=== PATIENT | female | born 1980 | race Hispanic/Latino ===

== ENCOUNTER 2020-04-27 13:32 | Emergency (ER) | payer SELFPAY ==
[~2020-04-27] VITALS: Ht 167.6 cm; Wt 102.1 kg
--- NOTE | 2020-04-27 14:15 | Emergency Department Note ---
History of Present Illnes History of Present Illness Chief Complaint: Chest Pain History of Present Illness This is a 39 year old female Chief Complaint Comment Patient in from home with complaints of mid sternal to left sided chest pain and pressure that started about 2 weeks ago. Patient states that when the pressure comes on it is usually at night and she feels like it is difficult for her to breathe and then she begins feeling anxious and experiences worse pain. Patient also reports that she has been belching frequently lately. Patient also reports that she has difficulty sleeping and that she has been taking melatonin from time to time to help. Historian: Patient Arrival Mode: Car Sign Fabricator Required: No Onset (how long ago): week(s) (2) Location: L chest Quality: Sharp Radiation: Reports non-radiation Severity: mild Onset quality: gradual Duration (how long): week(s) Timing of current episode: sporadic Progression: waxing and waning Chronicity: new Context: Denies recent illness, Denies recent surgery Relieving factors: none Exacerbating factors: none Associated symptoms: Reports denies other symptoms Treatments prior to arrival: none Past Medical/Family History Physician Review I have reviewed the patient's past medical and family history. Any updates have been documented here. Past Medical History Recent Fever: No Clinical Suspicion of Infectio: No New/Unexplained Change in Ment: No Past Medical History: None Past Surgical History: None Review of Systems Review of Systems Constitutional: Reports no symptoms EENTM: Reports no symptoms Cardiovascular: Reports as per HPI, Reports chest pain Respiratory: Reports no symptoms Gastrointestinal: Reports no symptoms Genitourinary: Reports no symptoms Musculoskeletal: Reports no symptoms Integumentary: Reports no symptoms Neurological: Reports no symptoms Psychological: Reports no symptoms Endocrine: Reports no symptoms Hematological/Lymphatic: Reports no symptoms Physical Exam Related Data Allergies: Coded Allergies: No Known Allergies (Unverified , 04/27/20) Triage Vital Signs Vital Signs Date Time Temp Pulse Resp B/P (MAP) Pulse Ox O2 Delivery O2 Flow Rate FiO2 04/27/20 13:54 97.8 95 18 116/86 98 Room Air Vital signs reviewed: Yes Physical Exam CONSTITUTIONAL Constitutional: Present well-developed, Present well-nourished HENT HENT: Present normocephalic, Present atraumatic, Present oropharynx clear/moist, Present nose normal HENT L/R: Present left ext ear normal, Present right ext ear normal EYES Eyes: Reports PERRL, Reports conjunctivae normal NECK Neck: Present ROM normal PULMONARY Pulmonary: Present effort normal, Present breath sounds normal CARDIOVASCULAR Cardiovascular: Present regular rhythm, Present heart sounds normal, Present capillary refill normal, Present normal rate GASTROINTESTINAL Abdominal: Present soft, Present nontender, Present bowel sounds normal GENITOURINARY Genitourinary: Present exam deferred SKIN Skin: Present warm, Present dry MUSCULOSKELETAL Musculoskeletal: Present ROM normal NEUROLOGICAL Neurological: Present alert, Present oriented x 3, Present no gross motor or sensory deficits PSYCHOLOGICAL Psychological: Present mood/affect normal, Present judgement normal Procedures 12 Lead ECG Interpretation ECG Interpretation : Sign Fabricator: Interpreted by ED physician Date: Apr 27, 2020 Rhythm: sinus rhythm Rate: normal QRS axis: normal ST segments normal: Yes T waves normal: Yes Clinical Impression: non-specific ECG Assessment & Plan Medical Decision Making MDM 39-year-old female presents for chest pain. Chest pain onset early this morning. Initial differential includes ACS versus anxiety versus possible skeletal pain versus pneumonia among others. Workup shows normal cardiac enzymes, d-dimer normal, chest x-ray unremarkable. She was prescribed Eloxatin yesterday additionally had a negative workup. Troponin was 0.2 and decreased on repeat. Short-term follow-up with cardiology. She is uninsured and instructed to follow up with [facility] to see if they can see her. Patient states. She is appropriate for discharge. Reassessment Reassessment time: 16:38 Reassessment Well appearing, NAD Assessment & Plan Final Impression: (1) Chest pain Depart Disposition: HOME, SELF-CARE Last Vital Signs Date Time Temp Pulse Resp B/P (MAP) Pulse Ox O2 Delivery O2 Flow Rate FiO2 04/27/20 13:54 97.8 95 18 116/86 98 Room Air COBY YOUSSEF MD Apr 27, 2020 14:15
[2020-04-27 14:28] LABS: BASOPHILS % 0.4 % (0.0-1.0); EOSINOPHILS % 0.3 % (0.0-6.0); HEMATOCRIT 44.4 % (34.2-44.1); HEMOGLOBIN 14.7 g/dL (12.0-16.0); LYMPHOCYTES # (AUTO) 2.5 (1.0-3.2); LYMPHOCYTES % 25.7 % (18.0-39.1); MEAN CORPUSCULAR HEMOGLOBIN 26.8 pg (28-32); MEAN CORPUSCULAR HGB CONC 33.1 g/dL (31-35); MONOCYTES # (AUTO) 0.6 (0.2-0.8); MONOCYTES % 6.7 % (4.4-11.3); NEUTROPHILS # (AUTO) 6.4 (2.1-6.9); NEUTROPHILS % 66.6 % (38.7-80.0); PLATELET COUNT 356 x10e3/uL (140-360); RED BLOOD COUNT 5.48 x10e6/uL (3.6-5.1); RED CELL DISTRIBUTION WIDTH 12.4 % (11.7-14.4)
[2020-04-27 14:49] LABS: ALANINE AMINOTRANSFERASE 40 IU/L (0-55); ALBUMIN 3.8 g/dL (3.5-5.0); ALBUMIN/GLOBULIN RATIO 0.9 (0.8-2.0); ALKALINE PHOSPHATASE 152 IU/L (40-150); ANION GAP 13.2 mmol/L (8-16); BLOOD UREA NITROGEN 12 mg/dL (7-26); BUN/CREATININE RATIO 15 (6-25); CARBON DIOXIDE 23 mmol/L (22-29); CHLORIDE 103 mmol/L (98-107); CREATININE, SERUM 0.78 mg/dL (0.57-1.11); EST GLOMERULAR FILTRATION RATE > 60 ML/MIN (60-); GLUCOSE 260 mg/dL (74-118); POTASSIUM 4.2 mmol/L (3.5-5.1); SODIUM 135 mmol/L (136-145)
--- NOTE | 2020-04-27 15:03 | Diagnostic Imaging Report ---
TECHNIQUE: Frontal view of the chest. INDICATION: ^Y ^CP COMPARISON: None DISCUSSION: Limited evaluation due to portable technique. Lines and hardware: Overlying EKG leads are noted. Heart and mediastinum: Within normal limits. Lungs and pleura: No focal airspace consolidation. No pleural effusion. No pneumothorax. Soft tissues and bones: No acute abnormality. Cholecystectomy clips are noted in the right upper quadrant. IMPRESSION: Negative for acute intrathoracic process. Signed by: Dorian Corbett MD on 04/27/2020 3:00 PM
--- OUTSIDE RECORDS SUMMARY | 2020-04-27 15:16 | XMS REPORT | Continuity of Care Document ---
Author Author [facility] t Organization [facility] Address [address] [place] [address] Phone Unavailable Care Team Providers Care Lifestyle Consultant Name Role Phone Kenisha Gustafson Attphys Unavailable Igor Enriquez Attphys Velazquez Tim Velasquez Attphys Unavailable Igor Enriquez Unavailable Problems Condition Name Condition Details Condition Category Status Onset Date Resolution Date Last Treatment Date Treating Clinician Comments Source Anxiety Condition Active 2020-04-26 00:00:00 2020-04-26 08:47:15 Igor Enriquez [facility] Physical examination Condition Active 2020-04-26 00:00:00 2020-04-26 08:47:15 Igor Enriquez [facility] Allergies, Adverse Reactions, Alerts This patient has no known allergies or adverse reactions. Social History Social Habit Start Date Stop Date Quantity Comments Source drug use, illicit 2020-04-26 08:09:51 2020-04-26 08:09:51 Never [facility] alcohol use 2020-04-26 08:09:51 2020-04-26 08:09:51 Never [facility] sexual orientation 2020-04-26 08:09:51 2020-04-26 08:09:51 Heterosexu al [facility] sex at 2020-04-26 08:09:51 2020-04-26 08:09:51 Female [facility] Occupation #1 2020-04-26 08:09:51 2020-04-26 08:09:51 Unemployed [facility] patient considered to be homeless 2020-04-26 08:09:51 2020-04-26 08:0 9:51 No [facility] social history reviewed E&M 2020-04-26 08:09:51 2020-04-26 08:09 :51 reviewed today [facility] passive cigarette smoke exposure 2020-04-26 08:09:51 2020-04-26 08:09 :51 No [facility] is there any chance that you could be ? 2020-04-26 0 8:09:51 2020-04-26 08:09:51 No [facility] if the patient is using/has used a vapin g item, Current, Former, Never Used, Not asked 2020-04-26 08:09:51 2020-04-26 08:09:51 No L [facility] Smoking Status Start Date Stop Date Source Never smoked tobacco (finding) L [facility] Medications Ordered Medication Name Filled Medication Name Start Date Stop Da te Current Medication? Ordering Clinician Indication Dosage Frequency Signature (SIG) Comments Components Source (DULOXETINE HCL) 30 MG CPEP 2020-04-26 00:00:00 Yes Igor Enriquez 1 By Mouth Every Day [facility] Vital Signs Vital Name Observation Time Observation Value Comments Source blood pressure, diastolic 2020-04-26 08:09:51 82 mm[Hg] [facility] blood pressure, systolic 2020-04-26 08:09:51 114 mm[Hg] [facility] oxygen saturation, oximetry 2020-04-26 08:09:51 97 % [facility] pulse rate 2020-04-26 08:09:51 97 /min [facility] temperature site 2020-04-26 08:09:51 temporal [facility] temperature E&M 2020-04-26 08:09:51 98 [degF] [facility] 2020-04-26 08:09:51 223 [lb_av] [facility] weight in kilograms E&M 2020-04-26 08:09:51 101.36 kg [facility] height in centimeters E&M 2020-04-26 08:09:51 167.64 cm [facility] Procedures This patient has no known procedures. Encounters Start Date/Time End Date/Time Encounter Type Admission Type Attendi [facility] Care Department Encounter ID Source 2020-04-26 00:00:00 2020-04-26 00:00:00 Office Visit Francoise Enriquez [facility] Encounter/[id number] [facility] 2020-04-26 00:00:00 2020-04-26 00:00:00 Office Visit Igor Alcala Leonardo [facility] Encounter/[id number] [facility] Results Test Description Test Time Test Comments Results Result Comments Source CHEST SINGLE (PORTABLE) 2020-04-27 15:00:00 [facility] [address] [place] [address] Patient Name: HERNANDO SEQUEIRA MR #: [id number] : 1980 Age/Sex: 39/F Req #: [id number] Adm Physician: Ordered by: Coby Gustafson MD Report #: [id number] Location: ER Room/Bed: Procedure: [id number] DX/CHEST SINGLE (PORTABLE) Exam Date: Exam Time: REPORT STATUS: Signed TECHNIQUE: Frontal view of the chest. INDICATION: Y CP COMPARISON: None DISCUSSION: Limited evaluation due to portable technique. Lines and hardware: Overlying EKG leads are noted. Heart and mediastinum: Within normal limits. Lungs and pleura: No focal airspace consolidation. No pleural effusion. No pneumothorax. Soft tissues and bones: No acute abnormality. Cholecystectomy clips are noted in the right upper quadrant. IMPRESSION: Negative for acute intrathoracic process. Signed by: Lm Corbett MD on 04/27/2020 3:00 PM Dictated By: LM CORBETT MD 99 Transcribed By: ALEJO on 04/27/201499 COPY TO: COBY GUSTAFSON MD
== END 2020-04-27 17:04 | disposition home or self-care (01) ==
LOC: ER 13:53
DX: R07.89 Other chest pain (principal)
CPT/HCPCS: 36415; 71045; 80053; 83690; 84484; 84702; 85025; 85379; 93005; 99284